=== PATIENT | female | born 1985 | race Caucasian/White ===

== ENCOUNTER 2022-10-15 09:40 | Emergency (ER) | payer OTHER, SELFPAY ==
[2022-10-15 09:58] VITALS: BP 129/81; PULSE 64; RESP 16; TEMP 36.7; O2SAT 100
--- NOTE | 2022-10-15 10:42 | ED.GENADULT ---
HPI - General Adult General Chief complaint: Upper Respiratory Infection Stated complaint: Sore Throat Time Seen by Provider: 10/15/22 10:42 Source: patient, RN notes reviewed and old records reviewed Mode of arrival: ambulatory Limitations: no limitations History of Present Illness HPI narrative: 37 year old female presents to [facility] care with complaints of sore throat this morning denies any fever states she has had cough and runny nose for a few days.. Patient reports that her has similar symptoms and he is going to be seen later today. Patient reports that she has taken some antihistamine and did take Sudafed for her symptoms without improvement. Patient does reports history of seasonal allergies.Patient denies any ear pain or any shortness of breath, or any body aches. MD complaint: sore throat, runny nose and cough Onset (ago): day(s) (2-3) Severity scale (1-10): 4 Quality: aching Treatments prior to arrival: other (Sudafed) Related Data Home Medications Medication Instructions Recorded Confirmed No Home Medications 10/15/22 10/15/22 Allergies Allergy/AdvReac Type Severity Reaction Status Date / Time Sulfa (Sulfonamide Allergy Rash Verified 10/15/22 10:27 Antibiotics) Review of Systems Review of Systems: CONSTITUTIONAL: Denies malaise, chills, sweats, or fever. EYES: Denies visual changes, redness, or discharge. ENT: Reports rhinorrhea, congestion, sinus pain, no otalgia, positive sore throat. CARDIOVASCULAR: Denies chest pain, palpitations, or edema. RESPIRATORY: Reports some cough.? Denies dyspnea. GASTROINTESTINAL: Denies abdominal pain, nausea, vomiting, diarrhea SKIN: Denies rash or itching. MUSCULOSKELETAL: Denies myalgia. NEUROLOGIC: Denies headache. All systems reviewed & are unremarkable except as noted in HPI and below PMFSH Past Medical History Medical History (Updated 10/17/22 @ 08:35 by Malathi Narayanan NP) Ectopic Elevated cholesterol Seasonal allergies Vitamin D deficiency Surgical History Surgical History (Updated 10/17/22 @ 08:32 by Malathi Narayanan NP) History of repair of anterior cruciate ligament of left knee History of salpingectomy left ectopic Social History Social History (Updated 10/17/22 @ 08:26 by Malathi Narayanan NP) Smoking status: Never smoker Comments At time of signature, agree with nursing past medical, surgical, social and family history. There is no relevant family history pertinent to the presenting complaint Exam Narrative: GENERAL: Well-appearing, well-nourished, and in no acute distress. HEAD: Normocephalic EYES: PERRLA, conjunctivae clear ENT: Nares clear, turbinates edematous and erythematous, clear discharge. Mucous membranes moist. TM pearly mckinney with dull light reflex bilaterally; no tragal tenderness. Oropharynx erythematous without lesions. Tonsils not enlarged and without exudate, no drooling, no hoarseness, no trismus, uvula midline, some post nasal discharge. NECK: Supple. No lymphadenopathy CHEST: Clear to auscultation, breath sounds equal. No wheezing, rhonchi, rales, or stridor. No respiratory distress, speaks in full sentences.SAO2 100% on room air. HEART: Regular rate and rhythm. No murmur heard. SKIN: Warm, dry, no rash. NEURO: Alert and oriented x3. PSYCH: Normal mood and affect Course Course Emergency Course: Patient is aware of diagnosis, understands and agrees to treatment plan.? Anticipatory guidance given.? Patient agrees to follow-up as directed and is aware of reasons to seek care at the emergency department. Portions of this record may have been created with voice recognition software Level of Care: Express Care Visit Vital Signs Vital signs: Vital Signs Temperature 36.7 C 10/15/22 09:58 Pulse Rate 64 10/15/22 09:58 Respiratory Rate 16 10/15/22 09:58 Blood Pressure 129/81 10/15/22 09:58 Pulse Oximetry 100 10/15/22 0
== END 2022-10-15 10:58 | disposition home or self-care (01) ==
PROVIDERS: Emergency Provider Registered Nurse; PCP Nurse Practitioner Family
DX: J06.9 Acute upper respiratory infection, unspecified (principal); J02.9 Acute pharyngitis, unspecified; E78.00 Pure hypercholesterolemia, unspecified
CPT/HCPCS: 87081; 87880; 99203; G0463